=== PATIENT | male | born 1965 | race Caucasian/White ===

== ENCOUNTER → 2019-12-01 08:40 | Outpatient (BNVA) | payer OTHER, SELFPAY | PROVIDERS: Family Provider Nurse Practitioner Family; PCP Nurse Practitioner Family; Visit Provider Podiatrist Foot & Ankle Surgery | DX: M79.671 Pain in right foot (principal); M77.31 Calcaneal spur, right foot | CPT/HCPCS: 73630 ==

== ENCOUNTER 2019-12-01 13:31 | Outpatient (CLI) | payer OTHER, SELFPAY | END 2019-12-01 13:32 | disposition home or self-care (01) | LOC: SPT 13:33 | PROVIDERS: Family Provider Nurse Practitioner Family; PCP Nurse Practitioner Family; Visit Provider Podiatrist Foot & Ankle Surgery | DX: M72.2 Plantar fascial fibromatosis (principal) | CPT/HCPCS: 97760; L4397 ==

== ENCOUNTER → 2020-09-06 10:58 | Outpatient (BNVA) | payer OTHER, SELFPAY | PROVIDERS: Family Provider Nurse Practitioner Family; PCP Nurse Practitioner Family; Referring Provider Emergency Medicine Emergency Medical Services; Visit Provider Specialist | DX: M25.512 Pain in left shoulder (principal); M75.02 Adhesive capsulitis of left shoulder | CPT/HCPCS: 73030 ==

== ENCOUNTER 2020-09-14 06:00 | Outpatient (RCR) | payer OTHER, SELFPAY | END 2020-10-13 23:59 | disposition home or self-care (01) | LOC: WPT 06:00 | PROVIDERS: PCP Nurse Practitioner Family; Referring Provider Specialist; Visit Provider Specialist | DX: M25.512 Pain in left shoulder (principal) | CPT/HCPCS: 97110; 97112; 97161 ==

== ENCOUNTER → 2021-02-05 10:51 | Outpatient (BNVA) | payer OTHER, SELFPAY | PROVIDERS: PCP Nurse Practitioner Family; Referring Provider Emergency Medicine Emergency Medical Services; Visit Provider Podiatrist Foot & Ankle Surgery | DX: M79.671 Pain in right foot (principal) | CPT/HCPCS: 73630 ==

== ENCOUNTER → 2021-03-06 13:46 | Outpatient (BNVA) | payer OTHER, SELFPAY | PROVIDERS: PCP Emergency Medicine Emergency Medical Services; Visit Provider Specialist | DX: G20 Parkinson's disease (principal) | CPT/HCPCS: 99204; 99205 ==

== ENCOUNTER → 2021-04-11 15:35 | Outpatient (BNVA) | payer OTHER, SELFPAY | PROVIDERS: PCP Emergency Medicine Emergency Medical Services; Visit Provider Specialist | DX: G20 Parkinson's disease (principal) | CPT/HCPCS: 96116; 99214 ==

== ENCOUNTER → 2021-08-06 09:55 | Outpatient (BNVA) | payer OTHER, SELFPAY | PROVIDERS: PCP Emergency Medicine Emergency Medical Services; Visit Provider Specialist | DX: G20 Parkinson's disease (principal); R51.9 Headache, unspecified | CPT/HCPCS: 99214 ==

== ENCOUNTER → 2021-11-13 10:34 | Outpatient (BNVA) | payer OTHER, SELFPAY | PROVIDERS: PCP Emergency Medicine Emergency Medical Services; Visit Provider Specialist | DX: G20 Parkinson's disease (principal) | CPT/HCPCS: 99213 ==

== ENCOUNTER 2021-12-06 12:25 | Outpatient (CLI) | payer OTHER, SELFPAY ==
--- NOTE | 2021-12-06 13:00 | MR_ITS ---
WS: [id number] MRI BRAIN WITHOUT CONTRAST HISTORY: R51.9 - Headache, unspecified COMPARISON: None available. TECHNIQUE: Diffusion imaging, multiplanar T1, T2 and FLAIR imaging obtained. No evidence for acute infarct or hemorrhage. Browne-white matter differentiation is normal. No remote or acute infarcts are volume loss. Ventricles and extra-axial spaces are normal. No inferior displacement of cerebellar tonsils. The sella turcica and pituitary gland are unremarkabl e. Dural venous sinuses and [place] of [place] demonstrate no abnormality on this unenhanced studies. Paranasal sinuses: Clear. Mastoid air cells: Normal. Calvarium and scalp: Intact. MR/MR head wo con* [id number] IMPRESSION: 1. Unremarkable noncontrast MRI brain. 2. No prior infarct or significant small vessel ischemic disease. 3. No paranasal sinus disease.
== END 2021-12-06 12:26 | disposition home or self-care (01) ==
LOC: RAD 12:26
PROVIDERS: PCP Emergency Medicine Emergency Medical Services; Visit Provider Specialist
DX: R51.9 Headache, unspecified (principal)
CPT/HCPCS: 70551

== ENCOUNTER → 2022-05-14 09:14 | Outpatient (BNVA) | payer OTHER, SELFPAY | PROVIDERS: PCP Emergency Medicine Emergency Medical Services; Visit Provider Specialist | DX: G20 Parkinson's disease (principal) | CPT/HCPCS: 96116; 99214 ==

== ENCOUNTER → 2022-11-12 09:13 | Outpatient (BNVA) | payer OTHER, SELFPAY | PROVIDERS: PCP Emergency Medicine Emergency Medical Services; Visit Provider Specialist | DX: G20 Parkinson's disease (principal) | CPT/HCPCS: 96116; 99213 ==

== ENCOUNTER → 2023-10-06 11:27 | Outpatient (BNVA) | payer OTHER, SELFPAY | PROVIDERS: PCP Emergency Medicine Emergency Medical Services; Visit Provider Podiatrist Foot & Ankle Surgery | DX: M67.472 Ganglion, left ankle and foot | CPT/HCPCS: 73630; 99213 ==

== ENCOUNTER → 2023-10-21 14:38 | Outpatient (BNVA) | payer OTHER, SELFPAY | PROVIDERS: PCP Emergency Medicine Emergency Medical Services; Visit Provider Specialist | DX: G20.B1 Parkinson's disease with dyskinesia, without mention of fluctuations (principal) | CPT/HCPCS: 99213; 99214 ==

== ENCOUNTER → 2024-10-20 13:35 | Outpatient (BNVA) | payer OTHER, SELFPAY | PROVIDERS: PCP Emergency Medicine Emergency Medical Services; Visit Provider Specialist | DX: G20.B1 Parkinson's disease with dyskinesia, without mention of fluctuations (principal) | CPT/HCPCS: 99214 ==